=== PATIENT | male | born 1950 | race Caucasian/White ===

== ENCOUNTER → 2018-10-17 | Outpatient (CLI) | payer OTHER, MEDICARE ==
[~2018-10-17] MED LIST: ALLO100T PO; METO-239 PO; WARF1TAB69 PO
--- NOTE | 2018-10-17 08:07 | RAD ---
CHEST PA LATERAL CLINICAL INDICATION: . Dyspnea. COMPARISON: None FINDINGS: CABG changes noted. Left chest wall cardiac pacer with its leads projecting over the heart. Heart is normal in size. Lungs are hyperinflated. Elevation of left hemidiaphragm with left basilar atelectasis. No pneumothorax. Visualized bony thorax within normal limits. IMPRESSION: 1. Stable elevation of left hemidiaphragm with mild left basilar atelectasis. 2. Mild emphysema. Underlying atypical/viral infection or interstitial pulmonary edema not ruled out. Electronically signed by: Audi Quiles DO (10/17/2018 8:04 AM) [facility]
== END | disposition home or self-care (01) ==
LOC: DXRAD 07:35
PROVIDERS: ATTEND Internal Medicine Cardiovascular Disease
DX: J43.9 Emphysema, unspecified (principal); J98.11 Atelectasis; Z95.1 Presence of aortocoronary bypass graft
CPT/HCPCS: 71046

== ENCOUNTER → 2019-02-20 | Outpatient (CLI) | payer OTHER ==
--- NOTE | 2019-02-20 14:23 | RAD ---
EXAM: Frontal chest with 4 view right rib series. HISTORY: Right rib pain. COMPARISON: 10/17/2018. FINDINGS: A left-sided pacemaker has its leads in the right atrium and right ventricle. There are changes of coronary artery bypass grafting and valve replacement. Opacity in the left base is consistent with elevation of the left hemidiaphragm along with atelectasis and possibly a pleural effusion. There is no pneumothorax. The heart appears moderately enlarged. There are atherosclerotic calcifications of the aorta. There are chronic healed fractures of the anterior right seventh through ninth ribs. There are no displaced acute fractures. IMPRESSION: 1. No displaced acute right rib fractures. 2. Chronic opacification of the left base secondary to elevation of the left hemidiaphragm, with or without atelectasis/infiltrate and a small pleural effusion. 2. Moderate cardiomegaly. Electronically signed by: Jeremy Wills MD (02/20/2019 2:20 PM) [facility]
== END | disposition home or self-care (01) ==
LOC: RAD 07:22
PROVIDERS: ATTEND Physician Assistant Medical
DX: R07.81 Pleurodynia (principal); J90 Pleural effusion, not elsewhere classified; J98.11 Atelectasis; I70.0 Atherosclerosis of aorta; I51.7 Cardiomegaly; Z95.0 Presence of cardiac pacemaker; Z95.1 Presence of aortocoronary bypass graft; Z95.2 Presence of prosthetic heart valve
CPT/HCPCS: 71101

== ENCOUNTER → 2019-09-17 | Outpatient (CLI) | payer OTHER ==
--- NOTE | 2019-09-17 12:54 | CARD ---
MR#: [id number] Date of Study: 09/17/2019 Ordering Physician: GERRY CHOI, Referring Physician: GERRY CHOI, Tech: Alicia Velez APPROVED REPORT EXAM: Two-dimensional and M-mode echocardiogram with Doppler and color Doppler. Other Information Quality : AverageHR: 84bpm INDICATION Congestive Heart Failure Surgery/Intervention Status/Post Aortic Valve Replacement: Date: 2001 Pacemaker: Date: 2016 RISK FACTORS Hypertension Hyperlipidemia 2D DIMENSIONS Left Atrium(2D)3.9 (1.6-4.0cm)IVSd1.1 (0.7-1.1cm) Aortic Root(2D)2.8 (2.0-3.7cm)LVDd5.1 (3.9-5.9cm) LVOT Diameter1.9 (1.8-2.4cm)PWd1.1 (0.7-1.1cm) LVDs3.1 (2.5-4.0cm)FS (%) 38.7 % SV84.3 mlLVEF(%)68.8 (>50%) Aortic Valve AoV Peak Eamon.254.4cm/sAoV VTI44.3cm AO Peak GR.25.9mmHgLVOT Peak Eamon.156.8cm/s LVOT VTI 28.80cmAO Mean GR.13mmHg VALENTIN (VMAX)1.76yd6JRV (VTI)1.77cm2 Mitral Valve MV E Fccvljdc412.2cm/sMV E Peak Gr.17mmHg MV DECEL [id number] A Whmnrciq622.9cm/s MV E Mean Gr.9mmHgE/A Ratio0.8 Pulmonary Valve PV Peak Qrepyqhg198.7cm/sPV Peak Grad.7mmHg Tricuspid Valve TR P. Fmqjooxb651rw/sRAP IYOWVNIW99hjDt TR Peak Gr.43ubWkLLQR71ghEh LEFT VENTRICLE The left ventricle is normal size. There is mild concentric left ventricular hypertrophy. The left ve ntricular systolic function is normal. The Ejection Fraction is 55-60%. Septal motion consistent with post-op state and pacemaker activation. Transmitral Doppler flow pattern is Grade I-abnormal relaxat ion pattern. RIGHT VENTRICLE The right ventricle is borderline dilated. There is normal right ventricular wall thickness. The righ t ventricular systolic function is normal. There is a pacemaker lead in the right ventricle. ATRIA The left atrium is mildly dilated. The right atrium is borderline dilated. The interatrial septum is intact with no evidence for an atrial septal defect or patent foramen ovale as noted on 2-D or Dopple r imaging. AORTIC VALVE Doppler and Color Flow revealed trace aortic regurgitation. Calculated aortic valve area is 1.9 cm2 w ith maximum pressure gradient of 25 mmHg and mean pressure gradient of 13 mmHg. The mechanical prosth etic aortic valve appears normal. MITRAL VALVE Mitral annular calcification is severe. There is no evidence of mitral valve prolapse. Calculated solis ral valve area is 1.8 cm2 with maximum pressure gradient of 18 mmHg and mean pressure gradient of 9 m mHg. Moderate mitral stenosis. Doppler and Color-flow revealed mild mitral regurgitation. TRICUSPID VALVE The tricuspid valve is normal in structure and function. Doppler and Color Flow revealed mild tricusp id regurgitation with an estimated PAP of 48 mmHg. There is no tricuspid valve stenosis. PULMONIC VALVE The pulmonic valve is not well visualized. Doppler and Color Flow revealed no pulmonic valvular regur gitation. GREAT VESSELS The aortic root is normal in size. The IVC is dilated and collapses <50%. PERICARDIAL EFFUSION There is no evidence of significant pericardial effusion. Critical Notification Critical Value: No <Conclusion> The left ventricular systolic function is normal. The Ejection Fraction is 55-60%. Septal motion consistent with post-op state and pacemaker activation. Transmitral Doppler flow pattern is Grade I-abnormal relaxation pattern. There is a pacemaker lead in the right atrium and right ventricle. Mechanical prosthetic aortic valve appears well seated and functioning well. Mean gradient 13 mmHg. Moderate mitral stenosis. Mild mitral regurgitation. Mild tricuspid regurgitation with an estimated PAP of 48 mmHg. There is no evidence of significant pericardial effusion. Signed by : Alberto Harris, Electronically Approved : 09/17/2019 12:53:51
== END | disposition home or self-care (01) ==
LOC: ECHO 08:30
PROVIDERS: ATTEND Internal Medicine Cardiovascular Disease
DX: I08.1 Rheumatic disorders of both mitral and tricuspid valves (principal); I11.9 Hypertensive heart disease without heart failure
CPT/HCPCS: 93306

== ENCOUNTER → 2020-10-27 | Outpatient (CLI) | payer OTHER, MEDICARE ==
--- NOTE | 2020-10-28 10:38 | CARD ---
MR#: [id number] Date of Study: 10/27/2020 Ordering Physician: GERRY JIM, Referring Physician: GERRY JIM, Tech: Alicia Velez, [facility] APPROVED REPORT EXAM: Two-dimensional and M-mode echocardiogram with Doppler and color Doppler. Other Information Quality : AverageHR: 82bpm INDICATION Atrial Fibrillation Surgery/Intervention Status/Post Aortic Valve Replacement: Mechanical Date: 2001 Pacemaker: Date: 2016 RISK FACTORS Hypertension Hyperlipidemia 2D DIMENSIONS Left Atrium(2D)3.6 (1.6-4.0cm)IVSd1.0 (0.7-1.1cm) Aortic Root(2D)2.4 (2.0-3.7cm)LVDd4.6 (3.9-5.9cm) LVOT Diameter1.7 (1.8-2.4cm)PWd1.0 (0.7-1.1cm) LVDs2.8 (2.5-4.0cm)FS (%) 38.9 % SV67.8 mlLVEF(%)62.3 (>50%) Aortic Valve AoV Peak Eamon.264.3cm/sAoV VTI56.2cm AO Peak GR.27.9mmHgLVOT Peak Eamon.121.0cm/s LVOT VTI 27.66cmAO Mean GR.15mmHg VALENTIN (VMAX)1.63jq9PRO (VTI)1.15cm2 Mitral Valve MV E Pkjsedka549.5cm/sMV E Peak Gr.12mmHg MV DECEL [id number] A Ejkfjlyu547.7cm/s MV E Mean Gr.6mmHgE/A Ratio1.1 Pulmonary Valve PV Peak Nwvvrqra824.4cm/sPV Peak Grad.5mmHg Tricuspid Valve TR P. Twuuvhqm709xe/sRAP JDWAOEXN7utIi TR Peak Gr.79xaRaYDBV42ihPt LEFT VENTRICLE The left ventricle is normal size. There is mild concentric left ventricular hypertrophy. The left ve ntricular systolic function is normal and the ejection fraction is mildly diminished. EF 45% Wall mot ion consistent with pacemaker activation. There is mild global hypokinesis. Tissue Doppler imaging re veals moderate left ventricular diastolic dysfunction. No left ventricle thrombus noted on this study . RIGHT VENTRICLE The right ventricle is mildly to moderately dilated. There is normal right ventricular wall thickness . The right ventricular systolic function is normal. There is a pacemaker lead in the right ventricle . ATRIA The left atrium is mildly dilated. The right atrium is moderately dilated. The interatrial septum is intact with no evidence for an atrial septal defect or patent foramen ovale as noted on 2-D or Dopple r imaging. AORTIC VALVE Doppler and Color Flow revealed trace aortic regurgitation. Calculated aortic valve area is 1.2 cm2 w ith maximum pressure gradient of 28 mmHg and mean pressure gradient of 14 mmHg. There is a mechanical aortic valve prosthesis. MITRAL VALVE The mitral valve is calcified and displays decreased opening. There is no evidence of mitral valve pr olapse. There is mild to moderate mitral valve stenosis with an mean gradient of 6.45 mmHg. TRICUSPID VALVE The tricuspid valve is normal in structure and function. Doppler and Color Flow revealed trace to mil d tricuspid regurgitation with an estimated PAP of 51 mmHg. There is no tricuspid valve stenosis. PULMONIC VALVE The pulmonic valve is not well visualized. Doppler and Color Flow revealed no pulmonic valvular regur gitation. There is no pulmonic valvular stenosis. GREAT VESSELS The aortic root is normal in size. The IVC is dilated. PERICARDIAL EFFUSION There is no evidence of significant pericardial effusion. Critical Notification Critical Value: No <Conclusion> The left ventricular systolic function is normal and the ejection fraction is mildly diminished. EF 4 5% Wall motion consistent with pacemaker activation. There is mild global hypokinesis. Tissue Doppler imaging reveals moderate left ventricular diastolic dysfunction. There is a pacemaker lead in the right ventricle. There is a mechanical aortic valve prosthesis. Calculated aortic valve area is 1.2 cm2 with maximum pressure gradient of 28 mmHg and mean pressure g radient of 14 mmHg. There is mild to moderate mitral valve stenosis with an mean gradient of 6.45 mmHg. Doppler and Color Flow revealed trace to mild tricuspid regurgitation with an estimated PAP of 51 mmH g. Signed by : Gerry Jim, Electronically Approved : 10/28/2020 10:37:51
== END ==
LOC: ECHO 08:30
PROVIDERS: ATTEND Internal Medicine Cardiovascular Disease
DX: I08.1 Rheumatic disorders of both mitral and tricuspid valves (principal); I11.9 Hypertensive heart disease without heart failure; I48.0 Paroxysmal atrial fibrillation
CPT/HCPCS: 93306

== ENCOUNTER 2021-02-16 11:45 | Emergency (ER) | payer OTHER, MEDICARE ==
[~2021-02-16] VITALS: Ht 179.1 cm; Wt 99.1 kg
--- NOTE | 2021-02-16 12:24 | PHYS DOC ---
Past History Past Medical History: A-Fib, CAD, CHF, High Cholesterol, Heart Disease, Hypertension Adult General Chief Complaint Chief Complaint: URINARY RETENTION HPI HPI Patient is a 70-year-old male presenting for suprapubic pain. This is an acute issue. Reports he has numerous comorbid conditions and has been at baseline health but does admit over the past 72 hours he has had unintentional weight gain. He was concerned given his history of heart failure (unknown EF), artificial aortic valve placement status post Hodgkin's lymphoma with heart mass & LLL resection, and A. fib status post pacemaker placement. As such, he doubled his typical daily dose of 40 mg p.o. Lasix and took 80 mg p.o. Lasix this morning due to an approximately 5 pound weight gain over past 3 days. Patient urinated this morning without issues and then took new dose of medication. Since then, he has developed increased suprapubic pain and tenderness with palpation and inability to start a urine stream prompting him to come in for evaluation. Nothing known makes better or worse. Timing of symptoms has been constant since onset. He admits this is happened to him in the past when he doubled his Lasix but has never seen an outpatient urologist and has no other known abnormalities. Denies any history of BPH or other prostate abnormalities. Review of Systems Review of Systems Fourteen body systems of review of systems have been reviewed. See HPI for pertinent positives and negative responses, other dunn all other systems are negative, non-pertinent or non-contributory Allergies Allergies Allergies Coded Allergies Type Severity Reaction Last Updated Verified Penicillins Allergy Unknown 02/16/21 No amoxicillin Allergy Unknown 02/16/21 No Physical Exam Physical Exam Constitutional: Ambulatory, age-appropriate, GCS 15, appears in mild distress due to pain but is overall nontoxic in appearance HENT: Normocephalic, atraumatic, bilateral external ears normal, oropharynx moist, no oral exudates, nose normal. Eyes: PERRLA, EOMI, conjunctiva normal, no discharge. Neck: Normal range of motion, no tenderness, supple, no stridor. Cardiovascular: Heart rate regular, sinus rhythm, subtle 2+ holosystolic murmur with loud S2 and palpable click consistent with aortic valve replacement, pacemaker present to left upper outer chest Lungs & Thorax: No acute respiratory distress or increased accessory muscle use, absent lung sounds in left lower lobe, occasional rhonchi globally Abdomen: Bowel sounds normal, soft, suprapubic tenderness to palpation without guarding or rebound, no masses, no pulsatile masses. Nonsurgical abdomen, no peritoneal signs : External penis unremarkable, testicles and scrotal exam nonconcerning, patient deferred rectal exam Skin: Warm, dry, no erythema, no rash. Back: No tenderness, no CVA tenderness. Extremities: No tenderness, no cyanosis, no clubbing, ROM intact, no edema. Neurologic: Alert and oriented X 3, cranial nerves II through XII intact, normal motor & sensory function, no focal deficits noted. Psychologic: Affect normal, judgement normal, mood normal. Current Patient Data Vital Signs Vital Signs Date Time Temp Pulse Resp B/P (MAP) Pulse Ox O2 Delivery O2 Flow Rate FiO2 02/16/21 11:45 97.7 104 18 162/82 (108) 95 Room Air Vital Signs Date Time Temp Pulse Resp B/P (MAP) Pulse Ox O2 Delivery O2 Flow Rate FiO2 02/16/21 15:44 71 19 145/58 (87) 96 Room Air 02/16/21 11:45 97.7 Lab Results Laboratory Tests Test 02/16/21 12:37 02/16/21 12:45 02/16/21 13:13 02/16/21 17:20 Urine Collection Type Unknown Urine Color Yellow Urine Clarity Hazy Urine pH 5.0 Urine Specific [place] 1.015 Urine Protein Neg Urine Glucose (UA) Neg mg/dL Urine Ketones (Stick) Neg mg/dL Urine Blood Large Urine Nitrite Neg Urine Bilirubin Neg Urine Urobilinogen Dipstick 1.0 mg/dL Urine Leukocyte Esterase Neg Urine RBC 6-10 /HPF Urine WBC Occ /HPF Urine Squamous Epithelial Cells None /LPF Urine Renal Epithelial Cells Occ /LPF Urine Bacteria 0 /HPF Urine Hyaline Casts Occ /HPF Urine Mucus Slight /LPF White Blood Count 7.6 x10^3/uL 9.0 x10^3/uL Red Blood Count 4.25 x10^6/uL 4.20 x10^6/uL Hemoglobin 12.9 g/dL 12.7 g/dL Hematocrit 39.2 % 38.6 % Mean Corpuscular Volume 92 fL 92 fL Mean Corpuscular Hemoglobin 30 pg 30 pg Mean Corpuscular Hemoglobin Concent 33 g/dL 33 g/dL Red Cell Distribution Width 15.6 % 15.7 % Platelet Count 119 x10^3/uL 135 x10^3/uL Neutrophils (%) (Auto) 85 % 84 % Lymphocytes (%) (Auto) 6 % 7 % Monocytes (%) (Auto) 7 % 7 % Eosinophils (%) (Auto) 1 % 1 % Basophils (%) (Auto) 1 % 1 % Neutrophils # (Auto) 6.4 x10^3uL 7.5 x10^3uL Lymphocytes # (Auto) 0.5 x10^3/uL 0.6 x10^3/uL Monocytes # (Auto) 0.5 x10^3/uL 0.7 x10^3/uL Eosinophils # (Auto) 0.1 x10^3/uL 0.1 x10^3/uL Basophils # (Auto) 0.0 x10^3/uL 0.1 x10^3/uL Prothrombin Time 29.2 SEC Prothromb Time International Ratio 2.8 Activated Partial Thromboplast Time 34 SEC Sodium Level 142 mmol/L Potassium Level 3.2 mmol/L Chloride Level 103 mmol/L Carbon Dioxide Level 28 mmol/L Anion Gap 11 Blood Urea Nitrogen 18 mg/dL Creatinine 1.0 mg/dL Estimated GFR (Cockcroft-Gault) 73.5 Glucose Level 141 mg/dL Calcium Level 8.8 mg/dL Troponin I High Sensitivity 19 ng/L SARS-CoV-2 Antigen (Rapid) Negative Current Medications Medications (Trade) Dose Ordered Sig/Fortunato Route PRN Reason Start Time Stop Time Status Last Admin Dose Admin Fentanyl Citrate (Fentanyl 2ml Vial) 50 mcg 1X ONCE IVP 02/16/21 17:00 02/16/21 17:08 DC 02/16/21 17:18 EKG EKG EKG ordered and interpreted by myself 1240 hrs. is sinus rhythm at 69 bpm, prolonged CT 204 and QRS at 176 and QTC 471 otherwise unremarkable intervals, left axis deviation, T wave inversion noted in lead I and III, no obvious STEMI Radiology/Procedures Radiology/Procedures CT chest, abdomen and pelvis without contrast PQRS statement: CT scans at this facility use dose reduction including either automated exposure control, iterative reconstructions, and /or weight based radiation dosing via mA and kV modification when appropriate to reduce radiation dose to as low as reasonably achievable. HISTORY: Hematuria. Shortness of breath. Congestive heart failure. Lymphoma. Chest findings: Absence of contrast administration limits assessment for vascular or organ pathology including traumatic injury. There is extensive dense calcified plaque of the thoracic aorta at the aortic root through the ascending aorta and extensive coronary calcified plaque. Aortic valve replacement. Cardiac pacemaker. Mild cardiomegaly. Pulmonary vessels and esophagus are unremarkable. There is elevation left diaphragm containing the stomach and spleen. No enlarged adenopathy. Small dependent bilateral pleural effusions thickness of 1 cm as well as mild loculated fluid within the left major fissure. There is a lateral subpleural right lower lobe solid 9 mm nodule image 71. There is mild volume loss of the left lung due to the pleural effusion and elevation left diaphragm. 2 cm subpleural opacity of the upper lobe anterior segment adjacent of the mediastinal pleura there bronchograms. Bones are unremarkable. Abdomen findings: Surface irregularity liver may represent liver cirrhosis. Motion artifact at the upper abdomen however there are probable gallstones present. There is juana hepatis adenopathy with lymph nodes measuring up to 1.8 cm. There is edema at the juana hepatis as well as surrounding the descending duodenum and the head of the pancreas with lesser edema at the tail the pancreas. Spleen, adrenals, kidneys unremarkable. Sigmoid colonic mild diverticulosis. No bowel obstruction. The appendix is negative. Calcified plaque aorta and abdominal arteries and iliac arteries. Mild enlarged retroperitoneal lymph nodes about the aorta and IVC largest of which measures 1.6 x 1.1 cm on image 68. There is mild soft tissue edema along the lower quadrant retroperitoneal fat. 2 cm fatty umbilical ventral abdominal wall hernia with mild edema. Pelvis findings: Enlarged prostate transverse diameter 7 cm, catheter within the bladder, hemorrhage within the dependent bladder and mild bladder wall thickening and edema. There is periureteral edema and perinephric edema, no hydronephrosis or urinary calculi. Rectum and bones are unremarkable. No pelvic fluid. IMPRESSION: 1. Hematuria with hemorrhagic hyperdense fluid within the dependent urinary bladder. There is mild bladder wall thickening and edema could indicate cystitis. 2. Mild bilateral perinephric and periureteral edema could be due to pyelonephritis. No urinary calculi evident. 3. Marked enlargement of the prostate could be due to hyperplasia or neoplasia. 4. Liver cirrhosis. Gallstones. There is mild edema and adenopathy at the juana hepatis as well as mild edema surrounding the gallbladder, descending duodenum and the pancreas, this could be edema due to portal hypertension although inflammatory edema from cholecystitis, duodenitis or pancreatitis are also considerations. 5. Elevation of the left diaphragm containing the stomach and spleen. Small pleural effusions. There is a 2 cm subpleural focal opacity of the left upper lobe, this could represent round atelectasis, round pneumonia, pulmonary infarct or neoplastic nodule. There is a smaller 9 mm solid nodule right lower lobe. Consider follow-up CT chest imaging in 3 months of these lesions. 6. Abdominal adenopathy at the junaa hepatis and retroperitoneum. This is indeterminate. Neoplastic adenopathy from lymphoma or metastatic disease are possible. Electronically signed by: Evgeny Talbert MD (02/16/2021 3:12 PM) [facility] Heart Score C/O Chest Pain: No HEART Score for Chest Pain: HEART Score for Chest Pain Response (Comments) Value History Slighlty/Non-Suspicious 0 ECG Nonspecific Repolarizatio 1 Age > 65 2 Risk Factors >3 Risk Factors or Hx CAD 2 Troponin < Normal Limit 0 Total 5 Risk Factors: Risk Factors: DM, Current or recent (<one month) smoker, HTN, HLP, family history of CAD, obesity. Risk Scores: Risk Factors: DM, Current or recent (<one month) smoker, HTN, HLP, family history of CAD, obesity. Course & Med Decision Making Course & Med Decision Making Airway patent, breathing unlabored, IV access and vitals obtained that were grossly nonconcerning Patient bladder scanned immediately on arrival showing greater than 450 mL of retained fluid. Rojas catheter inserted with 300 mL immediate output that was bloody. This was kept in throughout ER visit with an additional 300 mL bloody output HPI obtained. Comprehensive physical exam and diagnostic work-up nonconcerning for any emergent or surgical issues but obviously concerning for hematuria and various other findings Patient has hematuria with radiographic findings of cystitis and pyelonephritis with an unremarkable UA and white count. Joint decision to defer antibiotic use. Patient's INR at goal given history of artificial valve replacement, no active bleeding so no need to correct Chest abdomen pelvis CT concerning for multiple issues. Liver cirrhosis findings are new to patient. Patient also has several lung nodules 1 of which in left upper lobe concerning for neoplastic origin at 2 cm. Generalized abdominal lymphadenopathy concerning for neoplastic process I reviewed entirety of ER work-up with patient and at bedside. Insertion of Rojas cath and initial urine output alleviated symptoms but these returned. Total bloody output of 600 mL concerning in a.m. anticoagulated patient. I also disclosed all abnormal findings found on CT imaging concerning for potential underlying neoplastic process in a high risk individual given history of Hodgkin's lymphoma I initially contacted [facility] in attempt to transfer patient per patient and request but they were full given current COVID-19 pandemic As such, I contacted [facility] and discussed need for hospital transfer for you at the very least urology consultation in a high risk individual, they ultimately agreed need for hospital transfer for continued inpatient medical management and work-up I have updated patient and at bedside on entirety of ER course, need for hospital transfer for for further work-up and urology consultation and they were amenable. All questions and concerns addressed prior to transfer via EMS Dragon Disclaimer Dragon Disclaimer This electronic medical record was generated, in whole or in part, using a voice recognition dictation system. Departure Departure: Impression: Primary Impression: Hematuria Additional Impressions: Liver cirrhosis Lung nodules Abdominal lymphadenopathy History of Hodgkin's lymphoma Disposition: 02 [facility] ([facility]) Admitting Physician: Other (dr peterson) Condition: STABLE Referrals: ROD FARR (PCP) Problem Qualifiers SANJEEV GIBSON DO Feb 16, 2021 12:24
[2021-02-16 13:22] LABS: BASO % 1 % (0-3); EOS # 0.1 x10^3/uL (0.0-0.7); EOS % 1 % (0-3); HEMATOCRIT 39.2 % (39.0-53.0); HEMOGLOBIN 12.9 g/dL (13.0-17.5); LYMPH # 0.5 x10^3/uL (1.0-4.8); LYMPH % 6 % (24-48); MEAN CORPUSCULAR HEMOGLOBIN 30 pg (25-35); MEAN CORPUSCULAR HGB CONC 33 g/dL (31-37); MEAN CORPUSCULAR VOLUME 92 fL (79-100); MONO # 0.5 x10^3/uL (0.0-1.1); MONO % 7 % (0-9); NEUT # 6.4 x10^3uL (1.8-7.7); NEUT % 85 % (31-73); PLATELET COUNT 119 x10^3/uL (140-400); RED BLOOD COUNT 4.25 x10^6/uL (4.30-5.70); RED CELL DISTRIBUTION WIDTH 15.6 % (11.5-14.5); WHITE BLOOD COUNT 7.6 x10^3/uL (4.0-11.0)
[2021-02-16 13:37] LABS: CALCIUM 8.8 mg/dL (8.5-10.1); GFR 73.5; POTASSIUM 3.2 mmol/L (3.5-5.1)
--- NOTE | 2021-02-16 13:42 | EKG ---
[address] [address] Test Date: 2021-02-16 Test Time: 12:33:16 Pat Name: YADIRA WELDON Department: Room: Gender: M Utilization Supervisor: KRYSTAL : 1950 Requested By: SANJEEV GIBSON Order Number: [id number] Reading MD: Alberto Harris Measurements Intervals [place] Rate: 69 P: 36 LA: 204 QRS: -62 QRSD: 176 T: 124 QT: 438 QTc: 471 Interpretive Statements VENTRICULAR PACED [facility] UNDERLYING ATRIAL FLUTTER Electronically Signed On 02-16-2021 14:01:40 SUPERVISING BAILIFF by Alberto Harris
[2021-02-16 14:09] LABS: BILIRUBIN,URINE NEG (NEG); CLARITY,URINE HAZY; COLOR,URINE YELLOW; GLUCOSE,URINE NEG (NEG); NITRITE,URINE NEG (NEG)
[2021-02-16 14:10] LABS: BACTERIA,URINE 0 /HPF (0-FEW); HYALINE CASTS, URINE OCC /HPF; WBC,URINE OCC /HPF (0-4)
--- NOTE | 2021-02-16 15:14 | RAD ---
CT chest, abdomen and pelvis without contrast PQRS statement: CT scans at this facility use dose reduction including either automated exposure cont rol, iterative reconstructions, and /or weight based radiation dosing via mA and kV modification when appropriate to reduce radiation dose to as low as reasonably achievable. HISTORY: Hematuria. Shortness of breath. Congestive heart failure. Lymphoma. Chest findings: Absence of contrast administration limits assessment for vascular or organ pathology including traumatic injury. There is extensive dense calcified plaque of the thoracic aorta at the ao rtic root through the ascending aorta and extensive coronary calcified plaque. Aortic valve replaceme nt. Cardiac pacemaker. Mild cardiomegaly. Pulmonary vessels and esophagus are unremarkable. There is elevation left diaphragm containing the stomach and spleen. No enlarged adenopathy. Small dependent b ilateral pleural effusions thickness of 1 cm as well as mild loculated fluid within the left major fi ssure. There is a lateral subpleural right lower lobe solid 9 mm nodule image 71. There is mild volum e loss of the left lung due to the pleural effusion and elevation left diaphragm. 2 cm subpleural [place] of the upper lobe anterior segment adjacent of the mediastinal pleura there bronchograms. Bones are unremarkable. Abdomen findings: Surface irregularity liver may represent liver cirrhosis. Motion artifact at the up per abdomen however there are probable gallstones present. There is juana hepatis adenopathy with lym ph nodes measuring up to 1.8 cm. There is edema at the juana hepatis as well as surrounding the desce nding duodenum and the head of the pancreas with lesser edema at the tail the pancreas. Spleen, adren als, kidneys unremarkable. Sigmoid colonic mild diverticulosis. No bowel obstruction. The appendix is negative. Calcified plaque aorta and abdominal arteries and iliac arteries. Mild enlarged retroperit jennings lymph nodes about the aorta and IVC largest of which measures 1.6 x 1.1 cm on image 68. There i s mild soft tissue edema along the lower quadrant retroperitoneal fat. 2 cm fatty umbilical ventral a bdominal wall hernia with mild edema. Pelvis findings: Enlarged prostate transverse diameter 7 cm, catheter within the bladder, hemorrhage within the dependent bladder and mild bladder wall thickening and edema. There is periureteral edema and perinephric edema, no hydronephrosis or urinary calculi. Rectum and bones are unremarkable. No pe lvic fluid. IMPRESSION: 1. Hematuria with hemorrhagic hyperdense fluid within the dependent urinary bladder. There is mild bl adder wall thickening and edema could indicate cystitis. 2. Mild bilateral perinephric and periureteral edema could be due to pyelonephritis. No urinary calcu li evident. 3. Marked enlargement of the prostate could be due to hyperplasia or neoplasia. 4. Liver cirrhosis. Gallstones. There is mild edema and adenopathy at the juana hepatis as well as mi ld edema surrounding the gallbladder, descending duodenum and the pancreas, this could be edema due t o portal hypertension although inflammatory edema from cholecystitis, duodenitis or pancreatitis are also considerations. 5. Elevation of the left diaphragm containing the stomach and spleen. Small pleural effusions. There is a 2 cm subpleural focal opacity of the left upper lobe, this could represent round atelectasis, ro und pneumonia, pulmonary infarct or neoplastic nodule. There is a smaller 9 mm solid nodule right low er lobe. Consider follow-up CT chest imaging in 3 months of these lesions. 6. Abdominal adenopathy at the juana hepatis and retroperitoneum. This is indeterminate. Neoplastic a denopathy from lymphoma or metastatic disease are possible. Electronically signed by: Evgeny Talbert MD (02/16/2021 3:12 PM) [facility]
[2021-02-16 17:41] LABS: BASO # 0.1 x10^3/uL (0.0-0.2); BASO % 1 % (0-3); EOS # 0.1 x10^3/uL (0.0-0.7); EOS % 1 % (0-3); HEMATOCRIT 38.6 % (39.0-53.0); HEMOGLOBIN 12.7 g/dL (13.0-17.5); LYMPH # 0.6 x10^3/uL (1.0-4.8); LYMPH % 7 % (24-48); MEAN CORPUSCULAR HEMOGLOBIN 30 pg (25-35); MEAN CORPUSCULAR HGB CONC 33 g/dL (31-37); MEAN CORPUSCULAR VOLUME 92 fL (79-100); MONO # 0.7 x10^3/uL (0.0-1.1); MONO % 7 % (0-9); NEUT # 7.5 x10^3uL (1.8-7.7); NEUT % 84 % (31-73); PLATELET COUNT 135 x10^3/uL (140-400); RED CELL DISTRIBUTION WIDTH 15.7 % (11.5-14.5)
[2021-02-16 17:57] VITALS: BP 144/76
== END 2021-02-16 18:03 | disposition short-term general hospital (02) ==
LOC: ER 11:45
DX: R31.9 Hematuria, unspecified (principal); K74.60 Unspecified cirrhosis of liver; R91.8 Other nonspecific abnormal finding of lung field; R59.0 Localized enlarged lymph nodes; I48.91 Unspecified atrial fibrillation; I25.10 Atherosclerotic heart disease of native coronary artery without angina pectoris; I11.0 Hypertensive heart disease with heart failure; I50.9 Heart failure, unspecified; E78.00 Pure hypercholesterolemia, unspecified; Z85.71 Personal history of Hodgkin lymphoma; Z20.822 Contact with and (suspected) exposure to COVID-19; Z88.0 Allergy status to penicillin; Z88.1 Allergy status to other antibiotic agents
CPT/HCPCS: 36415; 51702; 71250; 74176; 80048; 81001; 84484; 85025; 85610; 85730; 87426; 93005; 96374; 99285; C9803; J3010; U0003